=== PATIENT | female | born 1940 | race Hispanic/Latino ===

== ENCOUNTER 2018-12-12 09:59 | Emergency (ER) | payer MEDICARE ==
[2018-12-12 11:03] LABS: BASOPHILS % (AUTO) 0.5 % (0.0-5.0); HEMATOCRIT 43.6 % (36-48); LYMPHOCYTES % (AUTO) 28.6 % (21.0-51.0); MEAN CORPUSCULAR HEMOGLOBIN 30.3 pg (27.0-33.0); MEAN CORPUSCULAR VOLUME 89.3 fL (79-99); MONOCYTES % (AUTO) 10.1 % (3.0-13.0); NEUTROPHILS % (AUTO) 58.8 % (40.0-77.0); PLATELET COUNT (AUTO) 213 K/uL (130-400); RED BLOOD CELL COUNT(AUTO) 4.88 MIL/uL (4.00-5.50); RED CELL DISTRIBUTION WIDTH 13.4 % (11.0-15.5); WHITE BLOOD COUNT (AUTO) 6.4 K/uL (4.8-10.8)
[2018-12-12 11:12] LABS: CREATININE 0.9 mg/dL (0.5-1.5)
[2018-12-12 11:17] LABS: ALBUMIN 3.5 g/dL (3.5-5.0); BILIRUBIN,TOTAL 0.6 mg/dL (0.2-1.0); TOTAL PROTEIN, SERUM 7.6 g/dL (6.0-8.3)
[2018-12-12] MEDS ORDERED: SODIUM CHLORIDE 0.9% 1000ML 1,000 ML IV ONE (11:46)
[2018-12-12 12:01] LABS: BILIRUBIN,URINE Negative (NEGATIVE); COLOR,URINE Yellow (YELLOW); GLUCOSE, URINE (UA) >=1000 mg/dL (NEGATIVE); KETONES,URINE Negative (NEGATIVE); LEUKOCYTE ESTERASE ,URINE Negative (NEGATIVE); NITRATE,URINE Negative (NEGATIVE); OCCULT BLOOD,URINE Negative (NEGATIVE); PH,URINE 6.5 (5.0-8.0); PROTEIN,URINE Negative (NEGATIVE)
[2018-12-12 12:05] LABS: APPEARANCE,URINE CLEAR (CLEAR)
[2018-12-12 12:14] LABS: BACTERIA,URINE Rare /HPF (None Seen); RBC,URINE 0-1 /HPF (0-1); SQUAMOUS EPITHELIAL CELL,UR Rare /HPF (0-2); WBC,URINE 0-1 /HPF (0-1)
[2018-12-12 12:15] LABS: INR 0.91 (0.85-1.15); PARTIAL THROMBOPLASTIN TIME 26.3 SEC (26.3-35.5); PROTHROMBIN TIME 9.6 SEC (9.6-11.6)
== END 2018-12-12 12:45 | disposition home or self-care (01) ==
LOC: EDH 09:59
DX: S09.8XXA Other specified injuries of head, initial encounter (principal); E11.65 Type 2 diabetes mellitus with hyperglycemia; E78.5 Hyperlipidemia, unspecified; I10 Essential (primary) hypertension; Z79.4 Long term (current) use of insulin; Z90.710 Acquired absence of both cervix and uterus; V49.59XA Passenger injured in collision with other motor vehicles in traffic accident, initial encounter; Y93.89 Activity, other specified; Y92.89 Other specified places as the place of occurrence of the external cause; Y99.8 Other external cause status
CPT/HCPCS: 36415; 71045; 72125; 80053; 81001; 82550; 84484; 85025; 85610; 85730; 93005; 96360; 99284; J7030

== ENCOUNTER 2019-03-24 22:14 | Emergency (ER) | payer MEDICARE ==
[2019-03-24 22:36] LABS: EOSINOPHILS % (AUTO) 0.9 % (0.0-8.0); LYMPHOCYTES % (AUTO) 19.1 % (21.0-51.0); MEAN CORPUSCULAR HEMOGLOBIN 30.6 pg (27.0-33.0); MEAN CORPUSCULAR HGB CONC 33.5 g/dL (32.0-36.0); MEAN CORPUSCULAR VOLUME 91.4 fL (79-99); MONOCYTES % (AUTO) 8.8 % (3.0-13.0); NEUTROPHILS % (AUTO) 70.2 % (40.0-77.0); PLATELET COUNT (AUTO) 226 K/uL (130-400); RED BLOOD CELL COUNT(AUTO) 4.48 MIL/uL (4.00-5.50); RED CELL DISTRIBUTION WIDTH 13.5 % (11.0-15.5); WHITE BLOOD COUNT (AUTO) 7.8 K/uL (4.8-10.8)
[2019-03-24 22:44] LABS: INR 0.89 (0.85-1.15); PARTIAL THROMBOPLASTIN TIME 24.8 SEC (26.3-35.5); PROTHROMBIN TIME 9.4 SEC (9.6-11.6)
[2019-03-24 22:45] LABS: POTASSIUM 4.2 mmol/L (3.5-5.1)
[2019-03-24 22:48] LABS: APPEARANCE,URINE Clear (CLEAR); BILIRUBIN,URINE Negative (NEGATIVE); COLOR,URINE Yellow (YELLOW); GLUCOSE, URINE (UA) >=1000 mg/dL (NEGATIVE); KETONES,URINE Negative (NEGATIVE); LEUKOCYTE ESTERASE ,URINE Trace (NEGATIVE); NITRATE,URINE Negative (NEGATIVE); OCCULT BLOOD,URINE Negative (NEGATIVE); PH,URINE 6.5 (5.0-8.0); PROTEIN,URINE Negative (NEGATIVE)
[2019-03-24 22:49] LABS: ALBUMIN 3.3 g/dL (3.5-5.0); BILIRUBIN,TOTAL 0.7 mg/dL (0.2-1.0); TOTAL PROTEIN, SERUM 7.3 g/dL (6.0-8.3)
[2019-03-24] MEDS ORDERED: KETOROLAC TROMETHAMINE 15MG/ML ONE (22:57)
[2019-03-24 23:14] LABS: BACTERIA,URINE None Seen /HPF (None Seen); RBC,URINE None Seen /HPF (0-1); WBC,URINE 0-1 /HPF (0-1); YEAST,URINE BUDDING Rare /HPF (None Seen)
[2019-03-24 23:15] LABS: SQUAMOUS EPITHELIAL CELL,UR Rare /HPF (0-2)
[2019-03-25] MEDS ORDERED: TRAMADOL HCL 50 MG TABLET ONE (00:11)
== END 2019-03-25 00:42 | disposition home or self-care (01) ==
LOC: EDH 22:14
DX: M54.5 Low back pain (principal); E11.65 Type 2 diabetes mellitus with hyperglycemia; I10 Essential (primary) hypertension; E78.5 Hyperlipidemia, unspecified; M19.90 Unspecified osteoarthritis, unspecified site; Z79.4 Long term (current) use of insulin; Z95.1 Presence of aortocoronary bypass graft; Z90.710 Acquired absence of both cervix and uterus; W01.198A Fall on same level from slipping, tripping and stumbling with subsequent striking against other object, initial encounter; Y93.89 Activity, other specified; Y92.89 Other specified places as the place of occurrence of the external cause; Y99.8 Other external cause status
CPT/HCPCS: 36415; 70450; 71045; 72125; 72131; 80053; 81001; 82550; 82948; 84484; 85025; 85610; 85730; 93005; 96374; 99285; J1885

== ENCOUNTER 2020-03-22 11:17 | Inpatient (IN) | payer MEDICARE ==
[~2020-03-22] VITALS: Ht 162.6 cm; Wt 84.9 kg
[2020-03-22 12:29] LABS: BASOPHILS % (AUTO) 0.4 % (0.0-5.0); EOSINOPHILS % (AUTO) 1.5 % (0.0-8.0); HEMATOCRIT 40.9 % (36-48); LYMPHOCYTES % (AUTO) 17.1 % (21.0-51.0); MEAN CORPUSCULAR HEMOGLOBIN 29.7 pg (27.0-33.0); MEAN CORPUSCULAR VOLUME 90.1 fL (79-99); MONOCYTES % (AUTO) 9.6 % (3.0-13.0); NUCLEATED RED BLOOD CELLS 0.3 % (0.0-0.19); PLATELET COUNT (AUTO) 295 K/uL (130-400); RED BLOOD CELL COUNT(AUTO) 4.54 MIL/uL (4.00-5.50); RED CELL DISTRIBUTION WIDTH 12.2 % (11.0-15.5); WHITE BLOOD COUNT (AUTO) 7.4 K/uL (4.8-10.8)
[2020-03-22 12:34] LABS: CREATININE 1.2 mg/dL (0.5-1.5); POTASSIUM 3.7 mmol/L (3.5-5.1)
[2020-03-22 12:37] LABS: INR 0.88 (0.85-1.15); PARTIAL THROMBOPLASTIN TIME 24.5 SEC (26.3-35.5); PROTHROMBIN TIME 9.6 SEC (9.6-11.6)
[2020-03-22 12:39] LABS: ALBUMIN 3.4 g/dL (3.5-5.0); BILIRUBIN,TOTAL 0.5 mg/dL (0.2-1.0); TOTAL PROTEIN, SERUM 7.2 g/dL (6.0-8.3)
[2020-03-22] MEDS ORDERED: LABETALOL HCL 5 MG/ML 20ML VIAL IV ONE (14:43)
[2020-03-22] MEDS ORDERED: INSULIN HUMULIN R 100 UNIT/ML 3ML ONE ×2 (14:46→20:26)
[2020-03-22] MEDS: SODIUM CHLORIDE 0.9% 1000ML 1,000 ML IV SCH (15:45)
[2020-03-22 15:55] LABS: HEMOGLOBIN A1C 10.1 % (4.0-6.0)
[2020-03-22] MEDS ORDERED: ASPIRIN 81MG TAB.CHEW PO SCH (16:00)
[2020-03-22 16:10] LABS: THYROID STIMULATING HORMONE 2.15 uIU/mL (0.36-3.74)
[2020-03-22] MEDS: INSULIN HUMULIN R 100 UNIT/ML 3ML SQ SCH ×2 (16:30→21:00)
[2020-03-22] MEDS ORDERED: HYDRALAZINE HCL 20 MG/ML VIAL IV PRN (17:15)
[2020-03-22] MEDS ORDERED: FAMOTIDINE 20MG TAB 20 MG TAB ONE (20:25)
[2020-03-22] MEDS ORDERED: ATORVASTATIN CALCIUM 40 MG TABLET ONE (20:25)
[2020-03-22] MEDS: INSULIN GLARGINE 100 UNITS/ML 10 ML VIAL SQ SCH (21:00)
[2020-03-22] MEDS: FAMOTIDINE 20MG TAB 20 MG TAB PO SCH (21:00)
[2020-03-22] MEDS ORDERED: FAMOTIDINE 20MG TAB 20 MG TAB PO SCH (21:00)
[2020-03-22] MEDS: ATORVASTATIN CALCIUM 20 MG TABLET PO SCH (21:00)
[2020-03-22 22:30] VITALS: BP 209/117
--- NOTE | 2020-03-23 | NUR ---
PT ARRIVED AT 2300 FROM ER. ADMITTED FOR STROKE AND PERMISSIVE HYPERTENSION. PT IS WEAK, UNABLE TO AMBULATE. ALERT TO NAME, DATE, AND LOCATION. STATES SHE HAD RIGHT SIDED WEAKNESS AT HOME AND WAS HAVING DIFFICULTY SWALLOWING. ON IV FLUIDS. NO DISTRESS NOTED.
--- NOTE | 2020-03-23 01:00 | NUR ---
PT IS MINIMALLY CONFUSED. IS ABLE TO STATE NAME. THINKS SHE IS AT HOME. EASILY REDIRECTED. THIS LASTED ABOUT 15 MINUTES. SHE IS NOW ABLE TO RECALL MY NAME AND PURPOSE FOR BEING AT THE HOSPITAL. SHE STATES SHE HAS NOTED DIFFICULTY WITH MEMORY AND UNABLE TO RECALL CERTAIN INFORMATION FOR SOME WEEKS NOW. SHE SAYS FAMILY HAS TO CORRECT HER SOMETIMES, BECAUSE SHE GETS CONFUSED.
[2020-03-23] MEDS ORDERED: METO25 PO (01:27)
[2020-03-23] MEDS ORDERED: LEVO112T7 PO (01:27)
[2020-03-23] MEDS ORDERED: METF-444 PO (01:27)
[2020-03-23] MEDS ORDERED: ATOR40TA69 PO (01:27)
[2020-03-23] MEDS ORDERED: INSU100I21 SQ (01:27)
[2020-03-23 04:00] VITALS: BP 160/87
[2020-03-23] MEDS: INSULIN HUMULIN R 100 UNIT/ML 3ML SQ SCH ×4 (06:11→22:26)
[2020-03-23 08:00] VITALS: BP 150/77
[2020-03-23] MEDS: ASPIRIN 81MG TAB.CHEW PO SCH (09:00)
[2020-03-23] MEDS: METOPROLOL TARTRATE 25 MG TAB PO SCH ×2 (09:00→21:18)
[2020-03-23 11:21] VITALS: BP 144/87
--- NOTE | 2020-03-23 11:24 | NUR ---
INITIAL SW spoke with patient. Patient lives alone. Emergency contact is her daughter, Linda Gamez, [phone]. No home services. DME: BPM, shower chair, paddy, BSC. Patient is able to complete ADL's independently but does not drive. PCP is Dr. Dale Dao. Pharmacy is [facility] located in [place]. DCP is home. Addendum: 03/23/20 at 1126 by MARC ELIAS SS Amended: Links added.
[2020-03-23] MEDS: SODIUM CHLORIDE 0.9% 1000ML 1,000 ML IV SCH (11:45)
--- NOTE | 2020-03-23 14:01 | NUR ---
PATIENT WITH OCCLUSION ON CAROTID ARTERY. STILL NEEDS NEURO CONSULT. NURSE STATES TO WAIT FOR REFERAL AFTER CONSULT. Addendum: 03/23/20 at 1402 by ANGELIQUE YEH, PT PT Amended: Links added.
[2020-03-23 16:00] VITALS: BP 146/82
[2020-03-23 20:24] VITALS: BP 151/96
[2020-03-23] MEDS: ATORVASTATIN CALCIUM 20 MG TABLET PO SCH (21:18)
[2020-03-23] MEDS: FAMOTIDINE 20MG TAB 20 MG TAB PO SCH (21:18)
[2020-03-23] MEDS: INSULIN GLARGINE 100 UNITS/ML 10 ML VIAL SQ SCH (22:25)
--- NOTE | 2020-03-23 23:50 | NUR ---
PT CONTINUES WITH INTERMITTENT CONFUSION. AT THE MOMENT WAS DEMANDING TO GET OUT OF BED. SHE IS UPSET BECAUSE SHE THINKS SHE IS HOME. SHE WAS ABLE TO STAND, AND VOIDED IN BESIDE COMMODE. 400ML. PT INSISTS ON ATTEMPTING TO AMBULATE.
[2020-03-24 00:55] VITALS: BP 178/85
[2020-03-24 04:52] VITALS: BP 169/84
[2020-03-24] MEDS: INSULIN HUMULIN R 100 UNIT/ML 3ML SQ SCH ×4 (05:12→20:50)
[2020-03-24] MEDS: SODIUM CHLORIDE 0.9% 1000ML 1,000 ML IV SCH (05:38)
[2020-03-24 05:43] LABS: CREATININE 0.9 mg/dL (0.5-1.5); POTASSIUM 3.5 mmol/L (3.5-5.1)
[2020-03-24 05:49] LABS: HEMATOCRIT 41.1 % (36-48); MEAN CORPUSCULAR HEMOGLOBIN 29.8 pg (27.0-33.0); MEAN CORPUSCULAR HGB CONC 33.3 g/dL (32.0-36.0); MEAN CORPUSCULAR VOLUME 89.3 fL (79-99); PLATELET COUNT (AUTO) 307 K/uL (130-400); RED CELL DISTRIBUTION WIDTH 12.2 % (11.0-15.5); WHITE BLOOD COUNT (AUTO) 8.4 K/uL (4.8-10.8)
[2020-03-24 06:42] LABS: BAND NEUTROPHILS % (MANUAL) 2 % (0-2); EOSINOPHILS % (MANUAL) 4 % (1-6); LYMPHOCYTES % (MANUAL) 19 % (22-44); MAN.DIFF COMMENT-IMPRESSION MANUAL DIFFERENTIAL; MONOCYTES % (MANUAL) 14 % (2-9); PLATELET MORPHOLOGY COMMENT ADEQUATE; REACTIVE LYMPHOCYTES 3 % (0-0); SEGMENTED NEUTROPHILS % 58 % (40-70)
--- NOTE | 2020-03-24 07:45 | NUR ---
ASSESSMENT ENCOUNTERED PT A&OX3 BUT FORGETFUL, CALM COOPERATIVE AND DOES NOT APPEAR TO BE IN ANY DISTRESS NOR ANY NEURO DEFICITS PRESENT. PT DENIES PAIN, SOB, NAUSEA. PT IS ABLE TO TOLERATE FOODS, FLUIDS AND MEDICATION WITH NO THROAT CLEARING OR COUGH. PT PENDING CONSULT BY DR LEMA. CALL LIGHT WITHIN REACH, SITTER AT BEDSIDE.
--- NOTE | 2020-03-24 08:15 | NUR ---
PENDING NEURO CONSULT. Will attempt to see patient tomorrow 03/25/2020 for skilled PT Evaluation. Addendum: 03/24/20 at 1521 by CORY VALDEZ, PT PT Amended: Links added.
[2020-03-24 08:21] VITALS: BP 166/94
[2020-03-24] MEDS: ASPIRIN 81MG TAB.CHEW PO SCH (09:00)
[2020-03-24] MEDS: METOPROLOL TARTRATE 25 MG TAB PO SCH ×2 (09:00→19:41)
--- NOTE | 2020-03-24 09:40 | NUR ---
DR LEMA AT BEDSIDE UPDATE GIVEN, ORDERS RECEIVED.
--- NOTE | 2020-03-24 10:10 | NUR ---
DYSPHAGIA ISADORA COMPLETED. S/S OF ASPIRATION AT THIS TIME. RECOMMEND REGULAR SOLIDS, THIN LIQUIDS, AND PILLS WHOLE WITH LIQUIDS TOLERATED. SUPERVISOR PRESSING DEPARTMENT EDUCATED Pt ON RISKS AND CONSEQUENCES OF ASPIRATION. ALL QUESTIONS ANSWERED AT THIS TIME. SUPERVISOR PRESSING DEPARTMENT COORDINATED WITH NURSE TERRY. Addendum: 03/24/[address] ALLIE ZAIDI Amended: Links added.
[2020-03-24 12:54] VITALS: BP 152/66
--- NOTE | 2020-03-24 13:00 | NUR ---
AMBULATION PT AMBULATING FROM BED TO BEDSIDE COMMODE AND THEN TO CHAIR, BY SHUFFLE, GAIT BELT AND 1-2 PERSON ASSIST WITH LOWER EXTREMITY WEAKNESS UNABLE TO SUPPORT SELF, DENIES DIZZINESS BUT WAS SCARED OF FALLING. NO SOB NOR DYSPNEA ON EXERTION. PT OFF TO MRI/CT.
[2020-03-24] MEDS ORDERED: IOHEXOL-350 75 ML VIAL IV ONE (15:38)
[2020-03-24 18:06] VITALS: BP 188/81
[2020-03-24 19:12] VITALS: BP 155/80
[2020-03-24] MEDS: LISINOPRIL 5 MG TABLET PO SCH (20:00)
[2020-03-24] MEDS: INSULIN GLARGINE 100 UNITS/ML 10 ML VIAL SQ SCH (20:49)
[2020-03-24] MEDS: ATORVASTATIN CALCIUM 20 MG TABLET PO SCH (20:50)
[2020-03-24] MEDS: FAMOTIDINE 20MG TAB 20 MG TAB PO SCH (20:50)
--- NOTE | 2020-03-24 23:30 | NUR ---
CONFUSION/FORGETFUL patient continues to be confused and or forgetful, demanding, and is getting upset at the 1:1 sitter. Patient is high risk fall due to lower extremity weakness but able to get up to commode with 1-2 person assist. Contacted family members and spoke to daughter and was able to calm patient down. Contacted Hospitalist orders received and carried out.
[2020-03-24] MEDS ORDERED: LORAZEPAM 2 MG/ML 1 ML VIAL ONE (23:40)
[2020-03-24] MEDS ORDERED: LORAZEPAM 2 MG/ML 1 ML VIAL IVP SCH (23:45)
[2020-03-25] VITALS (7 sets, daily range): BP systolic 115–160; BP diastolic 68–117
[2020-03-25] MEDS: INSULIN LISPRO 100 UNIT/ML 3ML SQ SCH ×3 (06:42→17:00)
[2020-03-25] MEDS: INSULIN HUMULIN R 100 UNIT/ML 3ML SQ SCH ×4 (06:43→20:36)
[2020-03-25] MEDS: HYDROCHLOROTHIAZIDE 25 MG TABLET PO SCH (09:00)
[2020-03-25] MEDS: LISINOPRIL 5 MG TABLET PO SCH ×2 (09:00→20:21)
[2020-03-25] MEDS: METOPROLOL TARTRATE 25 MG TAB PO SCH ×2 (09:00→20:21)
[2020-03-25] MEDS: ASPIRIN 81MG TAB.CHEW PO SCH (09:42)
--- NOTE | 2020-03-25 12:59 | NUR ---
FOLLOW UP COMPLETED. CENTER DIRECTOR COORDINATED WITH NURSE WHELAN. Pt TOLERATING DIET RECOMMENDATIONS WITH NO S/S OF ASPIRATION AT THIS TIME. CONTINUE WITH PLAN OF CARE TOLERATED. Addendum: 03/25/[address] ALLIE ZAIDI Amended: Links added.
--- NOTE | 2020-03-25 20:00 | NUR ---
Surgical Follow up Spoke to Birdie Lewis for updates. Advised to Keep patient NPO after midnight and will discuss surgical interventions in the morning with patient.
[2020-03-25] MEDS: FAMOTIDINE 20MG TAB 20 MG TAB PO SCH (20:35)
[2020-03-25] MEDS: ATORVASTATIN CALCIUM 20 MG TABLET PO SCH (20:35)
[2020-03-25] MEDS: INSULIN GLARGINE 100 UNITS/ML 10 ML VIAL SQ SCH (20:39)
[2020-03-26 03:00] VITALS: BP 159/65
[2020-03-26] MEDS: INSULIN HUMULIN R 100 UNIT/ML 3ML SQ SCH ×4 (06:21→21:00)
[2020-03-26] MEDS: INSULIN LISPRO 100 UNIT/ML 3ML SQ SCH ×3 (06:21→17:12)
[2020-03-26 07:30] VITALS: BP 159/75
[2020-03-26 08:00] VITALS: BP 159/75
[2020-03-26] MEDS: LISINOPRIL 5 MG TABLET PO SCH ×3 (09:20→21:19)
[2020-03-26] MEDS: METOPROLOL TARTRATE 25 MG TAB PO SCH ×3 (09:20→21:19)
[2020-03-26] MEDS: ASPIRIN 81MG TAB.CHEW PO SCH (09:20)
[2020-03-26] MEDS: HYDROCHLOROTHIAZIDE 25 MG TABLET PO SCH (09:21)
[2020-03-26] MEDS: CLOPIDOGREL BISULFATE 75 MG TAB PO SCH (10:31)
[2020-03-26 12:13] VITALS: BP 150/74
[2020-03-26 16:00] VITALS: BP 154/77
--- NOTE | 2020-03-26 18:50 | NUR ---
Received report pt refused surgery and MDs all aware.Pt. on 1:1 Observation.
[2020-03-26 20:00] VITALS: BP 127/64
[2020-03-26] MEDS: INSULIN GLARGINE 100 UNITS/ML 10 ML VIAL SQ SCH (21:00)
[2020-03-26] MEDS: FAMOTIDINE 20MG TAB 20 MG TAB PO SCH ×2 (21:00→21:18)
[2020-03-26] MEDS: ATORVASTATIN CALCIUM 40 MG TABLET PO SCH ×2 (21:00→21:18)
--- NOTE | 2020-03-26 23:47 | NUR ---
Pt. refused medication,and Lantus ,shot.She is confused and wanting to leave.Explained to patient her situation and she understands but continue to be confuse.Patient removed telemonitor and does not want to go back to bed.CARVING MACHINE OPERATOR ELEAZAR was made aware no new order received,continue to be confused
[2020-03-27] VITALS (7 sets, daily range): BP systolic 112–165; BP diastolic 58–86
[2020-03-27] MEDS: INSULIN HUMULIN R 100 UNIT/ML 3ML SQ SCH ×4 (06:30→20:33)
[2020-03-27] MEDS: INSULIN LISPRO 100 UNIT/ML 3ML SQ SCH ×3 (06:30→18:33)
[2020-03-27 07:02] LABS: BASOPHILS % (AUTO) 0.2 % (0.0-5.0); EOSINOPHILS % (AUTO) 0.9 % (0.0-8.0); HEMATOCRIT 38.2 % (36-48); LYMPHOCYTES % (AUTO) 22.6 % (21.0-51.0); MEAN CORPUSCULAR HGB CONC 33.5 g/dL (32.0-36.0); MEAN CORPUSCULAR VOLUME 89.7 fL (79-99); MONOCYTES % (AUTO) 10.5 % (3.0-13.0); NEUTROPHILS % (AUTO) 65.4 % (40.0-77.0); PLATELET COUNT (AUTO) 262 K/uL (130-400); RED BLOOD CELL COUNT(AUTO) 4.26 MIL/uL (4.00-5.50); RED CELL DISTRIBUTION WIDTH 12.5 % (11.0-15.5)
[2020-03-27 07:24] LABS: INR 0.92 (0.85-1.15); PARTIAL THROMBOPLASTIN TIME 25.9 SEC (26.3-35.5)
[2020-03-27 08:04] LABS: CREATININE 1.3 mg/dL (0.5-1.5); MAGNESIUM 1.9 mg/dL (1.80-2.40); PHOSPHORUS 3.8 mg/dL (2.5-4.9); POTASSIUM 3.3 mmol/L (3.5-5.1); TOTAL PROTEIN, SERUM 6.5 g/dL (6.0-8.3)
[2020-03-27] MEDS: LISINOPRIL 5 MG TABLET PO SCH ×2 (08:51→20:21)
[2020-03-27] MEDS: METOPROLOL TARTRATE 25 MG TAB PO SCH ×2 (08:51→20:20)
[2020-03-27] MEDS: CLOPIDOGREL BISULFATE 75 MG TAB PO SCH (08:51)
[2020-03-27] MEDS: HYDROCHLOROTHIAZIDE 25 MG TABLET PO SCH (08:51)
[2020-03-27] MEDS: ASPIRIN 81MG TAB.CHEW PO SCH (08:52)
[2020-03-27] MEDS ORDERED: LACTULOSE 20 GM/30 ML UDCUP PO PRN (12:30)
[2020-03-27] MEDS: FAMOTIDINE 20MG TAB 20 MG TAB PO SCH (20:20)
[2020-03-27] MEDS: ATORVASTATIN CALCIUM 40 MG TABLET PO SCH (20:20)
[2020-03-27] MEDS: INSULIN GLARGINE 100 UNITS/ML 10 ML VIAL SQ SCH (20:33)
--- NOTE | 2020-03-27 20:34 | NUR ---
Patient appears calm and in good spirit,takes all her meds and insulin shots.Remained on one to one observation.
[2020-03-28] MEDS ORDERED: LIDOCAINE 5% TOPICAL PATCH TP SCH (02:45)
[2020-03-28] MEDS ORDERED: ACETAMINOPHEN-CODEINE 300/30MG TAB PO PRN (02:45)
[2020-03-28 02:58] LABS: APPEARANCE,URINE Cloudy (CLEAR); BILIRUBIN,URINE Negative (NEGATIVE); COLOR,URINE Yellow (YELLOW); GLUCOSE, URINE (UA) 500 mg/dL (NEGATIVE); KETONES,URINE Negative (NEGATIVE); LEUKOCYTE ESTERASE ,URINE Large (NEGATIVE); NITRATE,URINE Negative (NEGATIVE); OCCULT BLOOD,URINE Negative (NEGATIVE); PROTEIN,URINE Negative (NEGATIVE)
[2020-03-28 03:06] LABS: BACTERIA,URINE Rare /HPF (None Seen); RBC,URINE None Seen /HPF (0-1)
[2020-03-28 03:07] LABS: SQUAMOUS EPITHELIAL CELL,UR Many /HPF (0-2); YEAST,URINE BUDDING None Seen /HPF (None Seen)
[2020-03-28 03:15] VITALS: BP 104/61
[2020-03-28 04:30] LABS: BASOPHILS % (AUTO) 0.5 % (0.0-5.0); EOSINOPHILS % (AUTO) 2.6 % (0.0-8.0); HEMATOCRIT 36.8 % (36-48); LYMPHOCYTES % (AUTO) 25.6 % (21.0-51.0); MEAN CORPUSCULAR HEMOGLOBIN 29.1 pg (27.0-33.0); MEAN CORPUSCULAR HGB CONC 32.6 g/dL (32.0-36.0); MEAN CORPUSCULAR VOLUME 89.3 fL (79-99); MONOCYTES % (AUTO) 11.6 % (3.0-13.0); NEUTROPHILS % (AUTO) 59.4 % (40.0-77.0); PLATELET COUNT (AUTO) 262 K/uL (130-400); RED BLOOD CELL COUNT(AUTO) 4.12 MIL/uL (4.00-5.50); RED CELL DISTRIBUTION WIDTH 12.3 % (11.0-15.5); WHITE BLOOD COUNT (AUTO) 6.2 K/uL (4.8-10.8)
[2020-03-28 05:21] LABS: CARBON DIOXIDE 28 mmol/L (21-32); CHLORIDE 102 mmol/L (101-111); CREATININE 1.1 mg/dL (0.5-1.5); GLOMERULAR FILTR. RATE CALC 51 mL/min (>60); GLUCOSE,RANDOM 190 mg/dL (70-105); POTASSIUM 3.3 mmol/L (3.5-5.1); SODIUM SERUM 138 mmol/L (136-145); UREA NITROGEN, BLOOD 18 mg/dL (7-18)
[2020-03-28] MEDS: INSULIN HUMULIN R 100 UNIT/ML 3ML SQ SCH (06:27)
[2020-03-28] MEDS: INSULIN LISPRO 100 UNIT/ML 3ML SQ SCH (06:28)
--- NOTE | 2020-03-28 07:50 | NUR ---
ASSESSMENT ENCOUNTERED PT ASLEEP BUT AROUSEABLE, A&OX3 BUT FORGETFUL, PT DENIES PAIN, SOB, NAUSEA, OR DIZZINESS. PT IS AMBULATORY, GAIT SLOW BUT STEADY WITH WALKER AND ASSIST, PT CONTINUES TO BE IMPULSIVE WITH GETTING OUT OF BED AND HAS HAD HISTORY OF FALLS AT HOME. PT CONTINUES TO REFUSE CAROTID ENDARCTECTOMY BY DR MARQUEZ. PT UNDERSTANDS AND ACCEPTS RISKS THAT INCLUDE, BUT NOT LIMITED TO, DIZZINESS, SYNCOPE, STROKE AND . PT IS ABLE TO TOLERATE FOODS, FLUIDS AND MEDICATION WITH NO THROAT CLEARING OR COUGH. CALL LIGHT WITHIN REACH, SITTER AT BEDSIDE.
[2020-03-28 08:00] VITALS: BP 128/58
[2020-03-28] MEDS: ASPIRIN 81MG TAB.CHEW PO SCH (08:50)
[2020-03-28] MEDS: LISINOPRIL 5 MG TABLET PO SCH (08:50)
[2020-03-28] MEDS: METOPROLOL TARTRATE 25 MG TAB PO SCH (08:50)
[2020-03-28 08:51] VITALS: BP 115/61
[2020-03-28] MEDS: HYDROCHLOROTHIAZIDE 25 MG TABLET PO SCH (08:51)
[2020-03-28] MEDS ORDERED: CLOP75TA14 PO (10:53)
--- NOTE | 2020-03-28 12:00 | NUR ---
DISCHARGE INSTRUCTIONS GIVEN TO PATIENT AND SIGNIFICANT OTHER, BOTH UNDERSTAND AND ACCEPT RISKS OF REFUSING CAROTID ENDARCTECTOMY BY DR MARQUEZ THAT INCLUDES, BUT NOT LIMITED TO, DIZZINESS, SYNCOPE, STROKE AND . PIV REMOVED AND INTACT, DISCHARGED HOME TO FAMILY VEHICLE VIA WHEELCHAIR.
== END 2020-03-28 12:43 | disposition home or self-care (01) | DRG 66 ==
LOC: EDH 11:17 → EDHIP 15:35 → 4BH 22:58 → 4CH 03-24 18:58
PROVIDERS: ADMIT Internal Medicine; ATTEND Internal Medicine
DX: I63.9 Cerebral infarction, unspecified (principal); I65.21 Occlusion and stenosis of right carotid artery; E11.65 Type 2 diabetes mellitus with hyperglycemia; E66.9 Obesity, unspecified; E03.9 Hypothyroidism, unspecified; E78.5 Hyperlipidemia, unspecified; G93.89 Other specified disorders of brain; I10 Essential (primary) hypertension; I16.0 Hypertensive urgency; R27.0 Ataxia, unspecified; R29.6 Repeated falls; I25.10 Atherosclerotic heart disease of native coronary artery without angina pectoris; Z86.73 Personal history of transient ischemic attack (TIA), and cerebral infarction without residual deficits; Z95.1 Presence of aortocoronary bypass graft; Z68.32 Body mass index [BMI] 32.0-32.9, adult
CPT/HCPCS: 36415; 70450; 70498; 70544; 70551; 71045; 80048; 80053; 80061; 81001; 82550; 82607; 82746; 82948; 83036; 83735; 84100; 84145; 84443; 84484; 85025; 85610; 85730; 87077; 87088; 87186; 92610; 93005; 93356; 93880; 97039; C8929; G0378; J1815; J2060; J3490; J7030; Q9967

== ENCOUNTER → 2020-08-12 | Outpatient (CLI) | payer OTHER, MEDICARE ==
[~2020-08-12] MED LIST: ATOR40TA69 PO; CLOP75TA14 PO; INSU100I21 SQ; LEVO112T7 PO; METF-444 PO; METO25 PO
== END | disposition home or self-care (01) ==
LOC: SHCH 10:29
PROVIDERS: ATTEND Internal Medicine Cardiovascular Disease
DX: I73.9 Peripheral vascular disease, unspecified (principal)
CPT/HCPCS: 93925

== ENCOUNTER → 2020-11-17 | Outpatient (CLI) | payer OTHER, MEDICARE | END | disposition home or self-care (01) | LOC: OIH 10:01 | PROVIDERS: ATTEND Family Medicine | DX: M79.672 Pain in left foot (principal); J44.9 Chronic obstructive pulmonary disease, unspecified | CPT/HCPCS: 73630 ==

== ENCOUNTER → 2021-04-17 | Outpatient (CLI) | payer OTHER, MEDICARE | END | disposition home or self-care (01) | LOC: SHCH 12:43 | PROVIDERS: ATTEND Internal Medicine Cardiovascular Disease | DX: I25.10 Atherosclerotic heart disease of native coronary artery without angina pectoris (principal); I67.9 Cerebrovascular disease, unspecified | CPT/HCPCS: 93306; 93356 ==

== ENCOUNTER 2021-05-21 17:02 | Observation (INO) | payer OTHER, MEDICARE ==
[~2021-05-21] VITALS: Ht 165.1 cm; Wt 95.8 kg
[2021-05-21 17:42] VITALS: BP 159/91
[2021-05-21 17:52] LABS: BASOPHILS % (AUTO) 0.2 % (0.0-5.0); EOSINOPHILS % (AUTO) 0.2 % (0.0-8.0); HEMATOCRIT 37.9 % (36-48); LYMPHOCYTES % (AUTO) 12.8 % (21.0-51.0); MEAN CORPUSCULAR HEMOGLOBIN 30.3 pg (27.0-33.0); MEAN CORPUSCULAR HGB CONC 31.9 g/dL (32.0-36.0); MONOCYTES % (AUTO) 8.4 % (3.0-13.0); NEUTROPHILS % (AUTO) 77.9 % (40.0-77.0); PLATELET COUNT (AUTO) 290 K/uL (130-400); RED BLOOD CELL COUNT(AUTO) 3.99 MIL/uL (4.00-5.50); WHITE BLOOD COUNT (AUTO) 8.8 K/uL (4.8-10.8)
[2021-05-21 18:04] LABS: CREATININE 1.1 mg/dL (0.5-1.5)
[2021-05-21 18:05] LABS: INR 0.95 (0.85-1.15); PROTHROMBIN TIME 10.4 SEC (9.6-11.6)
[2021-05-21 18:06] LABS: PARTIAL THROMBOPLASTIN TIME 23.9 SEC (26.3-35.5)
[2021-05-21 18:09] LABS: ALBUMIN 3.1 g/dL (3.5-5.0); BILIRUBIN,TOTAL 0.3 mg/dL (0.2-1.0); TOTAL PROTEIN, SERUM 6.8 g/dL (6.0-8.3)
[2021-05-21 18:25] LABS: APPEARANCE,URINE Cloudy (CLEAR); BILIRUBIN,URINE Negative (NEGATIVE); COLOR,URINE Yellow (YELLOW); GLUCOSE, URINE (UA) Negative (NEGATIVE); KETONES,URINE Trace mg/dL (NEGATIVE); LEUKOCYTE ESTERASE ,URINE Small (NEGATIVE); NITRATE,URINE Negative (NEGATIVE); OCCULT BLOOD,URINE Negative (NEGATIVE); PROTEIN,URINE Trace mg/dL (NEGATIVE)
[2021-05-21 18:33] LABS: BACTERIA,URINE Few /HPF (None Seen); RBC,URINE 0-1 /HPF (0-1); SQUAMOUS EPITHELIAL CELL,UR Few /HPF (0-2); TRANSITIONAL EPI CELLS,URINE Few /HPF (None Seen)
[2021-05-21 19:10] LABS: THYROID STIMULATING HORMONE 30.66 uIU/mL (0.36-3.74)
[2021-05-21 19:36] VITALS: BP 149/73
[2021-05-21] MEDS ORDERED: ACETAMINOPHEN 325 MG TAB PO PRN ×2 (23:30)
[2021-05-21] MEDS ORDERED: NITROGLYCERIN 0.4 MG SL TAB SL PRN (23:30)
[2021-05-21] MEDS ORDERED: HYDRALAZINE 20MG/ML VIAL IV PRN (23:30)
[2021-05-21] MEDS ORDERED: ONDANSETRON 4MG INJ IV PRN (23:30)
[2021-05-21] MEDS ORDERED: 0.9%NACL 1000ML 1,000 ML IV SCH (23:30)
[2021-05-22] VITALS (8 sets, daily range): BP systolic 100–182; BP diastolic 31–80
[2021-05-22] MEDS ORDERED: KCL 20 MEQ ERTAB PO PRN
[2021-05-22] MEDS ORDERED: LEVOTHYROXINE 100MCG VIAL IV SCH
[2021-05-22] MEDS ORDERED: POTASSIUM CHLORIDE 20MEQ/100ML 100 ML IV PRN
[2021-05-22] MEDS ORDERED: POTASSIUM CHLORIDE 10% ELIXIR 20 MEQ/15 ML UDCUP PO PRN
[2021-05-22] MEDS ORDERED: GLUCAGON 1MG KIT 1 MG ML IM PRN
[2021-05-22] MEDS ORDERED: LIDOCAINE HCL-MPF 1% 2ML VIAL IV PRN
[2021-05-22 00:22] LABS: TROPONIN I 0.28 ng/mL (0.00-0.06)
[2021-05-22] MEDS ORDERED: GABA-529 PO (00:26)
[2021-05-22] MEDS ORDERED: ASPI-1005 PO (00:26)
[2021-05-22] MEDS: NITROGLYCERIN 1GM OINT 1 INCH/1GM TD SCH ×2 (01:21→10:25)
[2021-05-22] MEDS ORDERED: PIOG30TA70 PO (01:53)
[2021-05-22] MEDS ORDERED: LISI20TA24 PO (01:53)
[2021-05-22] MEDS ORDERED: INSU300I SQ (01:53)
[2021-05-22 05:47] LABS: BASOPHILS % (AUTO) 0.1 % (0.0-5.0); EOSINOPHILS % (AUTO) 0.1 % (0.0-8.0); HEMATOCRIT 37.3 % (36-48); LYMPHOCYTES % (AUTO) 19.8 % (21.0-51.0); MEAN CORPUSCULAR HEMOGLOBIN 30.2 pg (27.0-33.0); MEAN CORPUSCULAR HGB CONC 31.4 g/dL (32.0-36.0); MEAN CORPUSCULAR VOLUME 96.1 fL (79-99); MONOCYTES % (AUTO) 9.1 % (3.0-13.0); NEUTROPHILS % (AUTO) 70.6 % (40.0-77.0); PLATELET COUNT (AUTO) 307 K/uL (130-400); RED BLOOD CELL COUNT(AUTO) 3.88 MIL/uL (4.00-5.50); RED CELL DISTRIBUTION WIDTH 13.2 % (11.0-15.5); WHITE BLOOD COUNT (AUTO) 9.9 K/uL (4.8-10.8)
[2021-05-22 06:02] LABS: B-TYPE NATRIURETIC PEPTIDE 168 pg/mL (0-100); HEMOGLOBIN A1C 7.3 % (4.0-6.0)
[2021-05-22 06:11] LABS: MAGNESIUM 2.1 mg/dL (1.80-2.40); PHOSPHORUS 3.6 mg/dL (2.5-4.9); POTASSIUM 3.9 mmol/L (3.5-5.1); THYROID STIMULATING HORMONE 27.19 uIU/mL (0.36-3.74); TROPONIN I 0.23 ng/mL (0.00-0.06)
[2021-05-22] MEDS: INSULIN HUMULIN R 100 UNIT/ML 3ML SQ SCH ×3 (06:28→16:30)
[2021-05-22] MEDS: DEXTROSE 50%-WATER 50 ML DISP.SYRIN IV PRN (06:28)
[2021-05-22] MEDS: ASPIRIN 81MG CHEW TAB PO SCH (10:24)
[2021-05-22] MEDS: GABAPENTIN 100 MG CAPSULE PO SCH ×2 (10:25→20:34)
[2021-05-22] MEDS: LISINOPRIL 20 MG TABLET PO SCH (10:25)
[2021-05-22] MEDS: ENOXAPARIN SODIUM 40 MG/0.4 ML SYRINGE SQ SCH (10:25)
[2021-05-22] MEDS: FAMOTIDINE 20MG TAB PO SCH (10:25)
[2021-05-22 15:31] LABS: TROPONIN I 0.3 ng/mL (0.00-0.06)
[2021-05-22] MEDS ORDERED: ATORVASTATIN 40 MG TABLET PO SCH (21:00)
[2021-05-23 04:00] VITALS: BP 127/62
[2021-05-23 04:01] LABS: HEMATOCRIT 34.1 % (36-48); MEAN CORPUSCULAR HEMOGLOBIN 30.3 pg (27.0-33.0); MEAN CORPUSCULAR HGB CONC 31.7 g/dL (32.0-36.0); MEAN CORPUSCULAR VOLUME 95.5 fL (79-99); RED BLOOD CELL COUNT(AUTO) 3.57 MIL/uL (4.00-5.50); RED CELL DISTRIBUTION WIDTH 13.2 % (11.0-15.5); WHITE BLOOD COUNT (AUTO) 6.7 K/uL (4.8-10.8)
[2021-05-23 04:15] LABS: CREATININE 1.2 mg/dL (0.5-1.5); POTASSIUM 3.9 mmol/L (3.5-5.1)
[2021-05-23] MEDS: DEXTROSE 50%-WATER 50 ML DISP.SYRIN IV PRN (04:32)
[2021-05-23] MEDS ORDERED: LEVOTHYROXINE 75 MCG TABLET PO SCH (06:30)
[2021-05-23] MEDS ORDERED: INSULIN HUMULIN R 100 UNIT/ML 3ML SQ SCH (07:30)
[2021-05-23 08:16] VITALS: BP 126/52
[2021-05-23] MEDS: GABAPENTIN 100 MG CAPSULE PO SCH (09:54)
[2021-05-23] MEDS: FAMOTIDINE 20MG TAB PO SCH (09:54)
[2021-05-23] MEDS: LISINOPRIL 20 MG TABLET PO SCH (09:55)
[2021-05-23] MEDS: ASPIRIN 81MG CHEW TAB PO SCH (09:55)
[2021-05-23] MEDS: ENOXAPARIN SODIUM 40 MG/0.4 ML SYRINGE SQ SCH (09:56)
[2021-05-23 11:29] VITALS: BP 145/53
[2021-05-23 17:51] VITALS: BP 122/70
== END 2021-05-23 18:32 ==
LOC: EDH 17:02 → EDHIP 23:29 → 4DH 05-22 04:00
PROVIDERS: ADMIT Internal Medicine Critical Care Medicine; ATTEND Internal Medicine Critical Care Medicine
DX: I21.4 Non-ST elevation (NSTEMI) myocardial infarction (principal); Z20.822 Contact with and (suspected) exposure to COVID-19; R20.2 Paresthesia of skin; E03.9 Hypothyroidism, unspecified; I25.10 Atherosclerotic heart disease of native coronary artery without angina pectoris; I25.2 Old myocardial infarction; N17.9 Acute kidney failure, unspecified; I12.9 Hypertensive chronic kidney disease with stage 1 through stage 4 chronic kidney disease, or unspecified chronic kidney disease; N18.9 Chronic kidney disease, unspecified; M19.90 Unspecified osteoarthritis, unspecified site; E11.319 Type 2 diabetes mellitus with unspecified diabetic retinopathy without macular edema; E11.40 Type 2 diabetes mellitus with diabetic neuropathy, unspecified; E11.22 Type 2 diabetes mellitus with diabetic chronic kidney disease; E11.649 Type 2 diabetes mellitus with hypoglycemia without coma; E78.00 Pure hypercholesterolemia, unspecified; R77.8 Other specified abnormalities of plasma proteins; E78.5 Hyperlipidemia, unspecified; E66.9 Obesity, unspecified; R94.6 Abnormal results of thyroid function studies; R29.6 Repeated falls; Z79.82 Long term (current) use of aspirin; Z79.899 Other long term (current) drug therapy; Z98.890 Other specified postprocedural states; Z95.1 Presence of aortocoronary bypass graft; Z68.33 Body mass index [BMI] 33.0-33.9, adult; Z79.02 Long term (current) use of antithrombotics/antiplatelets; Z79.4 Long term (current) use of insulin; Z91.19 Patient's noncompliance with other medical treatment and regimen
CPT/HCPCS: 36415; 70450; 71045; 72125; 80048; 80053; 80061; 81001; 82550; 82607; 82948; 83036; 83605; 83735; 83874; 83880; 84100; 84439; 84443; 84481; 84484; 85025; 85027; 85610; 85730; 87040; 87088; 87635; 87804; 93005; 96361; 96365; 96366; 96372; 96374; 96375; 96376; 97039; C9803; G0378; J1650; J3490; J7070

== ENCOUNTER 2021-06-12 18:58 | Emergency (ER) | payer OTHER, MEDICARE ==
[~2021-06-12 18:58] MED LIST changes: +ASPI-1005 PO; +GABA-529 PO; +INSU300I SQ; +LISI20TA24 PO; +PIOG30TA70 PO
== END 2021-06-12 21:15 | disposition left against medical advice (07) ==
LOC: EDH 18:58
DX: Z53.21 Procedure and treatment not carried out due to patient leaving prior to being seen by health care provider (principal)